=== PATIENT | male | born 1955 | race Caucasian/White ===

== ENCOUNTER 2024-03-06 00:58 | Emergency (ER) | payer MEDICAID, OTHER ==
[~2024-03-06] VITALS: Ht 165.1 cm; Wt 75.0 kg
[2024-03-06 01:46] LABS: BASOPHILS % 0.3 % (0.0-2.0); EOSINOPHILS % 0.5 % (0.0-5.0); HEMATOCRIT. 46.6 % (42.0-52.0); HEMOGLOBIN. 15.8 g/dL (14.0-18.0); MEAN CORPUSCULAR HEMOGLOBIN 33.1 pg (28.0-32.0); MEAN CORPUSCULAR HGB CONC 33.9 g/dL (31.0-37.0); MEAN CORPUSCULAR VOLUME 97.5 fL (80.0-94.0); MONOCYTES % 8.4 % (2.0-8.0); NEUTROPHILS % 75.8 % (40.0-76.0); RED BLOOD CELL COUNT 4.78 mill/uL (4.7-6.1); RED CELL DISTRIBUTION WIDTH 13.6 % (11.6-14.6); WHITE BLOOD COUNT 11.2 x1000/uL (4.5-11.0)
[2024-03-06 01:55] LABS: CHLORIDE 109 mEq/L (98-107); POTASSIUM 3.8 mEq/L (3.5-5.1); SODIUM 140 mEq/L (136-145)
[2024-03-06 01:56] LABS: CARBON DIOXIDE 24 mEq/L (21-32)
[2024-03-06 01:57] LABS: CALCIUM 8.7 mg/dL (8.7-10.4)
[2024-03-06 02:01] LABS: CREATININE 1.2 mg/dL (0.6-1.3); GLUCOSE 123 mg/dL (70-105); UREA NITROGEN BLOOD 22 mg/dL (9-23)
[2024-03-06 02:04] LABS: TROPONIN I HIGH SENSITIVITY 24 ng/L (3.0-53)
[2024-03-06 02:12] LABS: DIFFERENTIAL COMMENT 1
[2024-03-06 02:24] LABS: ETHANOL BLOOD < 10 mg/dL (<10)
[2024-03-06 03:55] VITALS: PULSE 71; RESP 18; O2SAT 92
[2024-03-06] MEDS: IPRATROPIUM BROMIDE (0.02%) 0.5MG/2.5ML NEB HHN STA (03:55)
[2024-03-06] MEDS: ALBUTEROL (0.083%) 2.5MG/3ML NEB HHN STA (03:55)
[2024-03-06 04:29] LABS: TROPONIN I HIGH SENSITIVITY 23 ng/L (3.0-53)
[2024-03-06] MEDS ORDERED: ALBU6.7H15 INH (04:59)
[2024-03-06] MEDS ORDERED: GUAI600T26 MT (04:59)
[2024-03-06 05:20] VITALS: BP 135/89; PULSE 72; RESP 18; TEMP 36.89184; O2SAT 95
[2024-03-06] MEDS: METHYLPREDNISOLONE SOD SUCC 125MG/2ML (ACT-O-VIAL) IV NR (05:30)
== END 2024-03-06 05:40 | disposition home or self-care (01) ==
LOC: ER 00:58 → EDBD 00:58 → ER 05:40
DX: B34.9 Viral infection, unspecified (principal); Z20.822 Contact with and (suspected) exposure to COVID-19
CPT/HCPCS: 36415; 71045; 80048; 80320; 83880; 84484; 85025; 87426; 93005; 94640; 99285; G0480